=== PATIENT | male | born 1945 | race Caucasian/White ===

== ENCOUNTER → 2020-05-24 14:40 | Outpatient (CLI) | payer MEDICARE, BC, SELFPAY ==
[2020-05-28 03:07] LABS: Alternaria tenuis <0.10 kU/L (Class 0); Ash, White 0.12 kU/L (Class 0/I); Aspergillus fumigatus <0.10 kU/L (Class 0); Bermuda Grass 0.15 kU/L (Class 0/I); Birch <0.10 kU/L (Class 0); Black Walnut 0.15 kU/L (Class 0/I); Cat Hair / Dander,Stand <0.10 kU/L (Class 0); Cedar, Mountain <0.10 kU/L (Class 0); Cladosporium herbarum <0.10 kU/L (Class 0); Cockroach, American <0.10 kU/L (Class 0); Cottonwood <0.10 kU/L (Class 0); D farinae Mite <0.10 kU/L (Class 0); D pteronyssinus <0.10 kU/L (Class 0); Dog Epithelia <0.10 kU/L (Class 0); Elm, American White 0.19 kU/L (Class 0/I); Immunoglobulin E 307 IU/mL (6-495); Maple/Box Elder 0.14 kU/L (Class 0/I); Mulberry, White <0.10 kU/L (Class 0); Oak, White 0.17 kU/L (Class 0/I); Pecan <0.10 kU/L (Class 0); Penicillium Notatum <0.10 kU/L (Class 0); Pigweed, Rough 0.14 kU/L (Class 0/I); Ragweed, Short/Common 0.14 kU/L (Class 0/I); Russian Thistle 0.16 kU/L (Class 0/I); Sheep Sorrel 0.18 kU/L (Class 0/I); Sycamore, American 0.14 kU/L (Class 0/I); Timothy Grass 0.16 kU/L (Class 0/I)
[2020-05-28 13:08] LABS: Mouse Urine <0.10 kU/L (Class 0)
== END ==
DX: T78.40XA Allergy, unspecified, initial encounter (principal)
CPT/HCPCS: 36415; 82785; 86003

== ENCOUNTER → 2024-01-29 | Outpatient (CLI) | payer MEDICARE, SELFPAY ==
[2024-01-29 22:14] LABS: Amphetamine Urine VISTA NEGATIVE (<1000 ng/mL); Barbiturate Urine VISTA NEGATIVE (< 200 ng/mL); Benzodiazepine Urine VISTA NEGATIVE (< 200 ng/mL); Cocaine Urine VISTA NEGATIVE (< 300 ng/mL); Ecstacy Urine VISTA NEGATIVE (< 500 ng/mL); Methadone Urine VISTA NEGATIVE (< 300 ng/mL); PCP Urine VISTA NEGATIVE (< 25 ng/mL); THC Urine VISTA NEGATIVE (< 50 ng/mL); Vista UDS pH Range 6
== END | disposition home or self-care (01) ==
LOC: LAB 16:04
PROVIDERS: PCP Family Medicine; Referring Provider Anesthesiology; Visit Provider Anesthesiology
DX: F11.20 Opioid dependence, uncomplicated (principal)
CPT/HCPCS: 80307